=== PATIENT | female | born 1975 | race Caucasian/White ===

== ENCOUNTER 2017-08-13 16:49 | Emergency (ER) | payer BC, OTHER ==
[2017-08-13] MEDS ORDERED: IBUPROFEN 600 MG TABLET (FP) PO ONE (16:55)
[2017-08-13 16:56] VITALS: BP 137/95; PULSE 89; TEMP 97.5; BMI 23.6
--- NOTE | 2017-08-13 16:56 | PDOC ---
Rapid Medical Evaluation Time Seen by Provider: 08/13/17 16:51 Medical Evaluation: 08/13/17 16:51 The patient presents with a chief complaint of: Slammed R hand in car door. Pain to R 2nd and 3rd fingers. Also sustained cut to finger. I have performed a brief in-person evaluation of this patient; Pertinent physical exam findings: ambulatory, in no respiratory distress. Laceration 1cm to R dorsal second finger. Pain to palpation of R 2nd and 3rd fingers I have ordered the following: Motrin 600, R hand x-ray The patient will proceed to the ED for further evaluation. Discharge Disposition - Referrals Referrals: La Villalba MD [Primary Care Provider] - - Patient Instructions - Post Discharge Activity
[2017-08-13] MEDS ORDERED: DIPHTH,PERTUSS(ACELL),TET 0.5 ML DISP.SYRIN IM ONE (16:57)
--- NOTE | 2017-08-13 18:19 | PDOC ---
History of Present Illness - General Chief Complaint: Injury Stated Complaint: RIGHT HAND INJURY Time Seen by Provider: 08/13/17 16:51 History Source: Patient Exam Limitations: No Limitations - History of Present Illness Pain Location: reports: none, upper extremity Method of Injury: Yes: other (crushed in car door ) Modifying Factors: improves with: cold therapy Past History - Past Medical History Allergies/Adverse Reactions: Allergies Allergy/AdvReac Type Severity Reaction Status Date / Time No Known Allergies Allergy Verified 08/13/17 16:52 COPD: No Other medical history: macular degeneration - Suicide/Smoking/Psychosocial Hx Smoking History: Never smoked Information on smoking cessation initiated: No Hx Alcohol Use: No Drug/Substance Use Hx: No Substance Use Type: None *Physical Exam - Vital Signs Last Vital Signs Temp Pulse Resp BP Pulse Ox 97.5 F L 89 18 137/95 100 08/13/17 16:52 08/13/17 16:52 08/13/17 16:52 08/13/17 16:52 08/13/17 16:52 ED Treatment Course - Medications Given in the ED: ED Medications Discontinued Medications Generic Name Dose Route Start Last Admin Trade Name Kvngq PRN Reason Stop Dose Admin Ibuprofen 600 mg 08/13/17 16:55 08/13/17 16:57 Motrin - PO 08/13/17 16:56 600 mg ONCE ONE Administration *DC/Admit/Observation/Transfer - Referrals Referrals: La Villalba MD [Primary Care Provider] - - Patient Instructions - Post Discharge Activity
--- NOTE | 2017-08-13 19:04 | PDOC ---
History of Present Illness - General Chief Complaint: Injury Stated Complaint: RIGHT HAND INJURY Time Seen by Provider: 08/13/17 16:51 History Source: Patient Exam Limitations: No Limitations - History of Present Illness Initial Comments: 08/13/17 19:00 Patient was grabbing something from the trunk of her car when accidentally slammed her hand, incurred contusion and superficial abrasion to proximal phalanx of right index finger and pain to third digit also. Occurred: reports: just prior to arrival Severity: reports: mild, moderate Pain Location: reports: upper extremity (right hand with 2,3rd ) Method of Injury: Yes: direct blow Modifying Factors: improves with: None Loss of Consciousness: no loss of consciousness Associated Symptoms (Fall): denies symptoms Past History - Travel Traveled outside of the country in the last 30 days: No Close contact w/someone who was outside of country & ill: No - Past Medical History Allergies/Adverse Reactions: Allergies Allergy/AdvReac Type Severity Reaction Status Date / Time No Known Allergies Allergy Verified 08/13/17 16:52 Home Medications: Ambulatory Orders Oxycodone HCl/Acetaminophen [Percocet 5-325 mg Tablet -] 1 - 2 tab PO Q4H PRN # 10 tablet MDD 4 08/14/17 COPD: No Other medical history: macular degeneration - Suicide/Smoking/Psychosocial Hx Smoking History: Never smoked Information on smoking cessation initiated: No Hx Alcohol Use: No Drug/Substance Use Hx: No Substance Use Type: None Review of Systems - Review of Systems Able to Perform ROS?: Yes Is the patient limited Belgian proficient: Yes Constitutional: Yes: See HPI. No: Symptoms Reported, Malaise HEENTM: Yes: See HPI. No: Symptoms Reported Respiratory: No: Symptoms reported Musculoskeletal: Yes: Symptoms Reported, See HPI, Joint Pain, Joint Swelling Integumentary: Yes: Symptoms Reported, See HPI, Bruising Neurological: Yes: Symptoms reported, See HPI, Numbness (distal index and third digit) All Other Systems: Reviewed and Negative *Physical Exam - Vital Signs Last Vital Signs Temp Pulse Resp BP Pulse Ox 97.5 F L 89 18 137/95 100 08/13/17 16:52 08/13/17 16:52 08/13/17 16:52 08/13/17 16:52 08/13/17 16:52 - Physical Exam General Appearance: Yes: Nourished, Appropriately Dressed, Apparent Distress HEENT: positive: Normal ENT Inspection, TMs Normal, Pharynx Normal. negative: ANIBAL (horizontal nystagmus, patient with macular degeneration and legally blind) Neck: positive: Tender, Supple Respiratory/Chest: positive: Lungs Clear Extremity: positive: Swelling. negative: Normal Inspection, Normal Range of Motion Integumentary: positive: Normal Color, Pale, Swelling, Ecchymosis, Bruising ( with abrasion noted to the proximal phalanx of right index finger. Range of motion is limited secondary to exquisite pain however able to flex and extend index finger with better strength and movement of third fourth and fifth digits. ) Neurologic: positive: plate colorer II-XII NML intact, Alert, Normal Mood/Affect ED Treatment Course - Medications Given in the ED: ED Medications Discontinued Medications Generic Name Dose Route Start Last Admin Trade Name Freq PRN Reason Stop Dose Admin Ibuprofen 600 mg 08/13/17 16:55 08/13/17 16:57 Motrin - PO 08/13/17 16:56 600 mg ONCE ONE Administration Progress Note - Progress Note Progress Note: X-ray negative for fractures or dislocations, wound was cleaned and dressed with bacitracin ointment and Band-Aid and splint for mobilization. Patient encouraged to follow up with hand specialist this next week *DC/Admit/Observation/Transfer Diagnosis at time of Disposition: Contusion of hand including fingers Qualifiers: Encounter type: initial encounter Laterality: right Qualified Code(s): S60.221A - Contusion of right hand, initial encounter - Discharge Dispostion Disposition: HOME Condition at time of disposition: Stable Admit: No - Prescriptions Prescriptions: Oxycodone HCl/Acetaminophen [Percocet 5-325 mg Tablet -] 1 - 2 tab PO Q4H PRN # 10 tablet MDD 4 PRN Reason: Pain - Referrals Referrals: La Villalba MD [Primary Care Provider] - Wilbur Kahn MD [Staff Physician] - - Patient Instructions Printed Discharge Instructions: DI for Crush Injury Additional Instructions: Rest, ice to area on and off for 15 minutes 4-6 times a day Avoid heavy lifting or exercise until pain and swelling is resolved or until further directed Keep area highly elevated to reduce swelling Use splints/Pankaj wrap as directed Followup with orthopedist in one to 2 days if not improving, if significantly improved may wait one week for followup with orthopedist May use ibuprofen 2-200 mg tablets every 6 hours as needed for pain May take one half to 1 tablet of Percocet as needed for severe pain Your tetanus/diphtheria/pertussis booster updated today - Post Discharge Activity Forms/Work/School Notes: Back to Work
== END 2017-08-13 19:19 | disposition home or self-care (01) ==
LOC: JERFT 16:49
PROC: 3E0233Z Introduction of Anti-inflammatory into Muscle, Percutaneous Approach (ICD-10-PCS; principal; 2017-08-13)
DX: S60.221A Contusion of right hand, initial encounter (principal); S60.021A Contusion of right index finger without damage to nail, initial encounter; V88.8XXA Person injured in other specified noncollision transport accidents involving motor vehicle, nontraffic, initial encounter; Y92.488 Other paved roadways as the place of occurrence of the external cause; Y93.89 Activity, other specified; Y99.8 Other external cause status
CPT/HCPCS: 73130-TC-RT-FY; 90715; 99281-25

== ENCOUNTER 2018-03-08 22:52 | Emergency (ER) | payer BC ==
[2018-03-08 23:05] VITALS: BP 127/84; PULSE 92; TEMP 98.2; BMI 25.8
--- NOTE | 2018-03-08 23:21 | PDOC ---
History of Present Illness - General History Source: Patient, Law Enforcement, Other (VIDEOGAME TESTER.) Exam Limitations: No Limitations - History of Present Illness Initial Comments: 03/08/18 23:35 The patient is a 42 year old female, with a significant past medical history of macular degeneration, who presents to the emergency department with, vaginal cramping. As per patient, she had a surgical termination last week at 9 weeks along. She notes vaginal cramping today prompting her visit to [facility]. She was evaluated and found to have clots in her uterus. Patient is scheduled for a repeat suction tomorrow at 9am with Dr. Brandyn Rebolledo. Dr. Rebolledo notes he was not able to give narcotics from his office prompting her visit to the ER for pain management. Patient is a poor historian thus, history was obtained from OBGYN. She denies recent fevers, chills, headache or dizziness. She denies recent nausea, vomit, diarrhea or constipation. She denies recent dysuria, frequency, urgency or hematuria. She denies recent chest pain or shortness of breath. Allergies: NKDA Past surgical history: C-Sections x3. Primary Care Physician: Dr. La Moy <Taisha Mora - Last Filed: 03/08/18 23:35> <Fara Moscoso - Last Filed: 03/09/18 00:10> - General Chief Complaint: Vaginal Bleeding Stated Complaint: Miscarraige/retained products Time Seen by Provider: 03/08/18 23:08 Past History <Taisha Mora - Last Filed: 03/08/18 23:35> - Past Medical History COPD: No - Suicide/Smoking/Psychosocial Hx Smoking History: Never smoked Have you smoked in the past 12 months: No Information on smoking cessation initiated: No Hx Alcohol Use: No Drug/Substance Use Hx: No Substance Use Type: None <Fara Moscoso - Last Filed: 03/09/18 00:10> - Past Medical History Allergies/Adverse Reactions: Allergies Allergy/AdvReac Type Severity Reaction Status Date / Time No Known Allergies Allergy Verified 03/08/18 23:06 Home Medications: Ambulatory Orders Oxycodone HCl/Acetaminophen [Percocet 5-325 mg Tablet -] 1 - 2 tab PO Q4H PRN # 10 tablet MDD 4 08/14/17 Review of Systems - Review of Systems Able to Perform ROS?: Yes Comments:: 03/08/18 23:36 CONSTITUTIONAL: Absent: fever, no chills, no fatigue EYES: Absent: visual changes ENT: Absent: ear pain, no sore throat CARDIOVASCULAR: Absent: chest pain, no palpitations RESPIRATORY: Absent: cough, no SOB GI: Absent: abdominal pain, no nausea, no vomiting, no constipation, no diarrhea GENITOURINARY: Present: Vaginal cramping. Absent: dysuria, no frequency, no hematuria MUSKULOSKELETAL: Absent: back pain, no arthralgia, no myalgia SKIN: Absent: rash NEURO: Absent: headache All Other Systems: Reviewed and Negative <Taisha Mora - Last Filed: 03/08/18 23:35> *Physical Exam - Vital Signs Last Vital Signs Temp Pulse Resp BP Pulse Ox 98.2 F 92 H 16 127/84 100 03/08/18 23:01 03/08/18 23:01 03/08/18 23:01 03/08/18 23:01 03/08/18 23:01 - Physical Exam Comments: 03/08/18 23:36 GENERAL: Well developed, well nourished. Awake and alert. No acute distress. HEENT: Normocephalic, atraumatic. PERRLA, EOMI. No conjunctival pallor. Sclera are non- icteric. Moist mucous membranes. Oropharynx is clear. NECK: Supple. Full ROM. No JVD. Carotid pulses 2+ and symmetric, without bruits. No thyromegaly. No lymphadenopathy. CARDIOVASCULAR: Regular rate and rhythm. No murmurs, rubs, or gallops. Distal pulses are 2+ and symmetric. PULMONARY: No evidence of respiratory distress. Lungs clear to auscultation bilaterally. No wheezing, rales or rhonchi. ABDOMINAL: Soft. Non-tender. Non-distended. No rebound or guarding. No organomegaly. Normoactive bowel sounds. PELVIC: Patient deferred. MUSCULOSKELETAL Normal range of motion at all joints. No bony deformities or tenderness. No CVA tenderness. EXTREMITIES: No cyanosis. No clubbing. No edema. No calf tenderness. SKIN: Warm and dry. Normal capillary refill. No rashes. No jaundice. NEUROLOGICAL: Alert, awake, appropriate. Cranial nerves 2-12 intact. No deficits to light touch and temperature in face, upper extremities and lower extremities. No motor deficits in the in face, upper extremities and lower extremities. Normoreflexic in the upper and lower extremities. Normal speech. Toes are down- going bilaterally. Gait is normal without ataxia. PSYCHIATRIC: Cooperative. Good eye contact. Appropriate mood and affect. <Taisha Mora - Last Filed: 03/08/18 23:35> - Vital Signs Last Vital Signs Temp Pulse Resp BP Pulse Ox 98.2 F 92 H 16 127/84 100 03/08/18 23:01 03/08/18 23:01 03/08/18 23:01 03/08/18 23:01 03/08/18 23:01 <Fara Moscoso - Last Filed: 03/09/18 00:10> ED Treatment Course - LABORATORY CBC & Chemistry Diagram: 03/08/18 23:20 - ADDITIONAL ORDERS Additional order review: 03/08/18 23:20 RBC 4.52 MCV 93.3 MCHC 33.6 RDW 13.0 MPV 8.2 Neutrophils % 69.0 Lymphocytes % 21.1 Monocytes % 6.8 Eosinophils % 2.7 Basophils % 0.4 <Taisha Mora - Last Filed: 03/08/18 23:35> - LABORATORY CBC & Chemistry Diagram: 03/08/18 23:20 <Fara Moscoso - Last Filed: 03/09/18 00:10> Medical Decision Making - Medical Decision Making 03/09/18 00:06 This 42-year-old female had a termination last week and saw her INTEGRATION SOFTWARE DEVELOPER today because she has some vaginal bleeding. Ultrasound was done at the hospital in [place] by her INTEGRATION SOFTWARE DEVELOPER, Dr. Powers -he has her scheduled for an appt later today at 9am her hbg/hct are wnl [facility] IMP vag bleeding s/p therapeutic AB <Fara Moscoso - Last Filed: 03/09/18 00:10> *DC/Admit/Observation/Transfer - Attestations Scribe Attestion: 03/08/18 23:36 Documentation prepared by Taisha Mora, acting as medical planner for Fara Moscoso MD. <Risa Morapaigeconnie - Last Filed: 03/08/18 23:35> - Discharge Dispostion Decision to Admit order: No <Fara Moscoso - Last Filed: 03/09/18 00:10> Diagnosis at time of Disposition: Vagina bleeding - Discharge Dispostion Disposition: HOME Condition at time of disposition: Good - Referrals Referrals: La Villalba MD [Primary Care Provider] - - Patient Instructions Printed Discharge Instructions: DI for Vaginal Bleeding Additional Instructions: You are scheduled for procedure at your monotyper's office tomorrow at 9am - Post Discharge Activity
[2018-03-08 23:27] LABS: BASO % 0.4 % (0-2.0); EOS % 2.7 % (0-4.5); HEMATOCRIT 42.2 % (32.4-45.2); HEMOGLOBIN 14.2 GM/dL (10.7-15.3); LYMPH % 21.1 % (8-40); MCH 31.3 pg (25.7-33.7); MCHC 33.6 g/dl (32.0-36.0); MEAN CELL VOLUME 93.3 fl (80-96); MEAN PLT VOLUME 8.2 fl (7.5-11.1); MONO % 6.8 % (3.8-10.2); PLATELET COUNT 342 K/MM3 (134-434); RBC 4.52 M/mm3 (3.60-5.2); WHITE BLOOD COUNT 14.7 K/mm3 (4.0-10.0)
== END 2018-03-09 01:01 | disposition home or self-care (01) ==
LOC: JER 22:52
DX: O04.6 Delayed or excessive hemorrhage following (induced) termination of pregnancy (principal); N93.8 Other specified abnormal uterine and vaginal bleeding
CPT/HCPCS: 36415; 84702; 85025; 99282-25

== ENCOUNTER 2020-10-25 14:21 | Observation (INO) | payer BC, OTHER ==
[2020-10-25 16:24] LABS: BASO % 0.6 % (0-2.0); EOS % 3.1 % (0-4.5); HEMATOCRIT 40.4 % (32.4-45.2); LYMPH % 27.9 % (8-40); MCH 31.7 pg (25.7-33.7); MCHC 34.6 g/dl (32.0-36.0); MEAN CELL VOLUME 91.6 fl (80-96); MEAN PLT VOLUME 7.7 fl (7.5-11.1); MONO % 7.6 % (3.8-10.2); NEUT % 60.8 % (42.8-82.8); PLATELET COUNT 249 K/MM3 (134-434); RBC 4.41 M/mm3 (3.60-5.2); WHITE BLOOD COUNT 9.2 K/mm3 (4.0-10.0)
[2020-10-25 16:37] LABS: CHLORIDE 106 mmol/L (98-107); SODIUM 139 mmol/L (136-145)
[2020-10-25 16:40] LABS: ALBUMIN 3.8 g/dl (3.4-5.0); ANION GAP 6 MMOL/L (8-16); BLOOD UREA NITROGEN 9.7 mg/dL (7-18); CO2 27 mmol/L (21-32); GLUCOSE,RANDOM 89 mg/dL (74-106)
[2020-10-25 16:43] LABS: CREATININE 0.6 mg/dL (0.55-1.3); SGOT/AST 22 U/L (15-37); SGPT/ALT 16 U/L (13-61)
[2020-10-25 16:44] LABS: BILIRUBIN,TOTAL 0.6 mg/dL (0.2-1); TOT PROT 6.9 g/dl (6.4-8.2)
[2020-10-25 16:46] LABS: ALK PHOS 68 U/L (45-117)
[2020-10-25] MEDS ORDERED: ACETAMINOPHEN 1000 MG/100 ML VIAL (NON FORMULARY) IVPB ONE (18:23)
[2020-10-25] MEDS ORDERED: LACTATED RINGERS SOLUTION 1000 ML INFUS.BAG IV ONE (18:23)
[2020-10-25] MEDS ORDERED: ACETAMINOPHEN INJECTION 100 ML IVPB ONE (18:25)
[2020-10-25] MEDS ORDERED: LIDOCAINE 5% TOPICAL PATCH TP ONE (19:03)
[2020-10-25] MEDS ORDERED: LIDOCAINE 5% TOPICAL PATCH ONE (19:50)
[2020-10-25] MEDS ORDERED: KETOROLAC TROMETHAMINE 30 MG/1 ML VIAL IVPUSH ONE (20:02)
[2020-10-25] MEDS ORDERED: KETOROLAC TROMETHAMINE 30 MG/1 ML VIAL ONE (20:29)
[2020-10-25] MEDS ORDERED: CYCLOBENZAPRINE HCL 10 MG TABLET (FP) PO ONE (21:14)
[2020-10-25] MEDS ORDERED: CYCLOBENZAPRINE HCL 10 MG TABLET (FP) ONE (22:01)
[2020-10-25] MEDS: LIDOCAINE PATCH REMOVAL MC SCH (22:08)
[2020-10-26] MEDS ORDERED: KETOROLAC TROMETHAMINE 15 MG/ML VIAL IM PRN (00:10)
[2020-10-26] MEDS ORDERED: ACETAMINOPHEN 325 MG TABLET (FP) PO PRN (01:44)
[2020-10-26 03:25] VITALS: BMI 31.0
[2020-10-26] MEDS: KETOROLAC TROMETHAMINE 15 MG/ML VIAL IM PRN ×3 (05:25→21:15)
[2020-10-26 06:57] LABS: BASO % 0.6 % (0-2.0); EOS % 4.3 % (0-4.5); HEMATOCRIT 39.4 % (32.4-45.2); HEMOGLOBIN 13.2 GM/dL (10.7-15.3); LYMPH % 33.2 % (8-40); MCH 31.5 pg (25.7-33.7); MCHC 33.6 g/dl (32.0-36.0); MEAN CELL VOLUME 93.8 fl (80-96); MEAN PLT VOLUME 8.2 fl (7.5-11.1); MONO % 7.9 % (3.8-10.2); PLATELET COUNT 224 K/MM3 (134-434); RBC 4.21 M/mm3 (3.60-5.2); WHITE BLOOD COUNT 6.9 K/mm3 (4.0-10.0)
[2020-10-26 07:07] LABS: CALCIUM 8.1 mg/dL (8.5-10.1)
[2020-10-26 07:08] LABS: BLOOD UREA NITROGEN 11.4 mg/dL (7-18)
[2020-10-26 07:11] LABS: CREATININE 0.7 mg/dL (0.55-1.3)
[2020-10-26] MEDS ORDERED: ALPRAZolam 0.25 MG TABLET PO PRN (11:42)
[2020-10-26] MEDS: LIDOCAINE PATCH REMOVAL MC SCH (21:24)
[2020-10-26] MEDS ORDERED: PROCHLORPERAZINE INJECTION 10 MG/2 ML VIAL IVPB ONE (22:32)
[2020-10-26] MEDS: PANTOPRAZOLE 20 MG TABLET PO SCH (22:56)
[2020-10-27 08:59] VITALS: BP 138/80; PULSE 60; TEMP 98
[2020-10-27] MEDS: PANTOPRAZOLE 20 MG TABLET PO SCH (09:03)
[2020-10-27] MEDS ORDERED: SERTRALINE HCL 25 MG TABLET (FP) PO SCH (10:00)
[2020-10-27] MEDS: KETOROLAC TROMETHAMINE 15 MG/ML VIAL IM PRN (10:47)
== END 2020-10-27 13:25 | disposition home or self-care (01) ==
LOC: JER 14:21 → JERBED 21:15 → J4W 10-26 00:26
PROVIDERS: ADMIT Hospitalist; ATTEND Internal Medicine
PROC: 3E023NZ Introduction of Analgesics, Hypnotics, Sedatives into Muscle, Percutaneous Approach (ICD-10-PCS; principal; 2020-10-25)
PROC: 3E033NZ Introduction of Analgesics, Hypnotics, Sedatives into Peripheral Vein, Percutaneous Approach (ICD-10-PCS; 2020-10-25)
PROC: 3E033NZ Introduction of Analgesics, Hypnotics, Sedatives into Peripheral Vein, Percutaneous Approach (ICD-10-PCS; 2020-10-25)
PROC: 3E033GC Introduction of Other Therapeutic Substance into Peripheral Vein, Percutaneous Approach (ICD-10-PCS; 2020-10-25)
DX: F41.9 Anxiety disorder, unspecified (principal); R00.2 Palpitations; R07.9 Chest pain, unspecified; M94.0 Chondrocostal junction syndrome [Tietze]; I10 Essential (primary) hypertension; E66.9 Obesity, unspecified; Z68.31 Body mass index [BMI] 31.0-31.9, adult; M79.10 Myalgia, unspecified site; R53.81 Other malaise
CPT/HCPCS: 36415; 70450-TC; 71045-TC-FY; 80048; 80053; 84443; 84484; 84703; 85025; 85379; 85651; 86140; 93005; 93010; 99285-25; C9803; G0378; J0131; U0003; U0005

== ENCOUNTER 2022-07-17 15:33 | Inpatient (IN) | payer BC, OTHER ==
[2022-07-17 15:46] VITALS: BMI 26.6
[2022-07-17] MEDS ORDERED: SODIUM CHLORIDE 0.9% 500 ML INFUS.BAG IV ONE (16:51)
[2022-07-17] MEDS ORDERED: MECLIZINE HCL 12.5 MG TABLET PO ONE (16:51)
[2022-07-17] MEDS ORDERED: ONDANSETRON 4 MG/2 ML VIAL IVPUSH ONE (17:12)
[2022-07-17] MEDS ORDERED: MECLIZINE HCL 12.5 MG TABLET ONE (17:18)
[2022-07-17] MEDS ORDERED: ONDANSETRON 4 MG/2 ML VIAL ONE (17:19)
[2022-07-17 17:42] LABS: BASO % 0.1 % (0-2.0); EOS % 1.1 % (0-4.5); HEMATOCRIT 43.8 % (32.4-45.2); HEMOGLOBIN 14.7 GM/dL (10.7-15.3); MCH 30.8 pg (25.7-33.7); MCHC 33.5 g/dl (32.0-36.0); MEAN PLT VOLUME 7.5 fl (7.5-11.1); MONO % 2.3 % (3.8-10.2); NEUT % 89.5 % (42.8-82.8); PLATELET COUNT 236 10^3/uL (134-434); RBC 4.76 M/mm3 (3.60-5.2); RDW 14.1 % (11.6-15.6); WHITE BLOOD COUNT 9.4 K/mm3 (4.0-10.0)
[2022-07-17] MEDS ORDERED: KETOROLAC TROMETHAMINE 15 MG/ML VIAL IVPUSH ONE (17:42)
[2022-07-17] MEDS ORDERED: KETOROLAC TROMETHAMINE 15 MG/ML VIAL ONE (17:44)
[2022-07-17 17:49] LABS: INR 0.9 (0.83-1.09); PROTHROMBIN TIME (PATIENT) 10.5 SEC (9.7-13.0)
[2022-07-17 17:52] LABS: ACTIVATED PTT 31.5 SECONDS (25.2-36.5)
[2022-07-17 18:03] LABS: CALCIUM 8.8 mg/dL (8.5-10.1)
[2022-07-17 18:04] LABS: ALBUMIN 3.8 g/dl (3.4-5.0); BLOOD UREA NITROGEN 19.3 mg/dL (7-18); MAGNESIUM 2.1 mg/dL (1.8-2.4)
[2022-07-17 18:07] LABS: CREATININE 0.8 mg/dL (0.55-1.3)
[2022-07-17 18:08] LABS: BILIRUBIN,TOTAL 0.5 mg/dL (0.2-1); TOT PROT 6.8 g/dl (6.4-8.2)
[2022-07-17] MEDS ORDERED: METOCLOPRAMIDE HCL INJECTION 10 MG/2 ML VIAL IVPB ONE (19:45)
[2022-07-17] MEDS ORDERED: SODIUM CHLORIDE 500 ML IV STA (19:45)
[2022-07-17] MEDS ORDERED: METOCLOPRAMIDE HCL INJECTION 10 MG/2 ML VIAL ONE (19:56)
[2022-07-17] MEDS ORDERED: MIDAZOLAM HCL 2 MG/2 ML SINGLE DOSE VIAL IVPUSH ONE (20:29)
[2022-07-17] MEDS ORDERED: MIDAZOLAM HCL 2 MG/2 ML SINGLE DOSE VIAL ONE (20:41)
[2022-07-18] MEDS ORDERED: DEXTROSE 5%-NORMAL SALINE 1,000 ML IV SCH (00:15)
[2022-07-18] MEDS ORDERED: KETOROLAC TROMETHAMINE 30 MG/1 ML VIAL IVPUSH PRN (03:47)
[2022-07-18] MEDS ORDERED: AMOX TR/POT CLAV 875MG/125MG TABLETS (FP) PO SCH (08:00)
[2022-07-18] MEDS: ACETAMINOPHEN 1000 MG/100 ML BAG IVPB PRN ×2 (10:30→20:41)
[2022-07-18] MEDS: MULTIVITAMINS THER W-MINERALS COMBO TABLET (FP) PO SCH (10:31)
[2022-07-18] MEDS: METOCLOPRAMIDE HCL INJECTION 10 MG/2 ML VIAL IVPUSH PRN (10:32)
[2022-07-18] MEDS ORDERED: CEFTRIAXONE 1 GM in DEXTROSE 5%-WATER - 50 ML IVPB SCH (11:30)
[2022-07-18] MEDS ORDERED: valACYclovir HCL 1000 MG TABLET PO SCH (13:00)
[2022-07-18] MEDS ORDERED: valACYclovir HCL 500 MG TABLET (FP) PO SCH (13:32)
[2022-07-18] MEDS: GABAPENTIN 300 MG CAPSULE PO SCH ×3 (14:25→21:13)
[2022-07-18] MEDS ORDERED: CEFEPIME HCL 1 GM VIAL (RESTRICTED TO ID) ONE (19:53)
[2022-07-18] MEDS: CEFEPIME 1 GM in DEXTROSE 5%-WATER 100 ML IVPB SCH ×2 (19:59→23:50)
[2022-07-18] MEDS: valACYclovir HCL 500 MG TABLET (FP) PO SCH ×2 (20:48→21:11)
[2022-07-18] MEDS: VANCOMYCIN/WATER FOR INJ (PEG) 1,000 MG/200 ML BAG IVPB SCH (21:13)
[2022-07-18] MEDS: HEPARIN NA (PORCINE) 5,000 UNITS/ML 1ML VIAL SQ SCH (21:13)
[2022-07-19] MEDS: CEFEPIME 1 GM in DEXTROSE 5%-WATER 100 ML IVPB SCH ×3 (01:07→18:11)
[2022-07-19] MEDS: VANCOMYCIN/WATER FOR INJ (PEG) 1,000 MG/200 ML BAG IVPB SCH ×3 (02:46→20:58)
[2022-07-19] MEDS: valACYclovir HCL 500 MG TABLET (FP) PO SCH ×3 (05:21→22:27)
[2022-07-19] MEDS: GABAPENTIN 300 MG CAPSULE PO SCH ×4 (05:21→22:27)
[2022-07-19] MEDS: ACETAMINOPHEN 325 MG TABLET (FP) PO PRN (08:40)
[2022-07-19 09:49] LABS: BASO % 0.5 % (0-2.0); EOS % 7.6 % (0-4.5); HEMATOCRIT 38.2 % (32.4-45.2); HEMOGLOBIN 12.6 GM/dL (10.7-15.3); LYMPH % 27.6 % (8-40); MCH 30.5 pg (25.7-33.7); MCHC 33.1 g/dl (32.0-36.0); MEAN CELL VOLUME 92.2 fl (80-96); MEAN PLT VOLUME 7.8 fl (7.5-11.1); NEUT % 55.3 % (42.8-82.8); PLATELET COUNT 210 10^3/uL (134-434); RBC 4.15 M/mm3 (3.60-5.2); RDW 14.1 % (11.6-15.6); WHITE BLOOD COUNT 4.9 K/mm3 (4.0-10.0)
[2022-07-19 09:55] LABS: BLOOD UREA NITROGEN 14.5 mg/dL (7-18); CALCIUM 7.8 mg/dL (8.5-10.1)
[2022-07-19 09:59] LABS: CREATININE 0.6 mg/dL (0.55-1.3)
[2022-07-19] MEDS: MULTIVITAMINS THER W-MINERALS COMBO TABLET (FP) PO SCH (10:13)
[2022-07-19] MEDS: HEPARIN NA (PORCINE) 5,000 UNITS/ML 1ML VIAL SQ SCH ×2 (10:14→22:27)
[2022-07-19] MEDS: traMADol HCL 50 MG TABLET PO PRN ×3 (12:10→23:44)
[2022-07-19] MEDS: METOCLOPRAMIDE HCL INJECTION 10 MG/2 ML VIAL IVPUSH PRN (23:16)
[2022-07-20] MEDS: CEFEPIME 1 GM in DEXTROSE 5%-WATER 100 ML IVPB SCH ×3 (02:02→18:11)
[2022-07-20] MEDS: ACETAMINOPHEN 325 MG TABLET (FP) PO PRN (04:56)
[2022-07-20] MEDS: GABAPENTIN 300 MG CAPSULE PO SCH ×3 (05:00→21:09)
[2022-07-20] MEDS: valACYclovir HCL 500 MG TABLET (FP) PO SCH ×3 (05:00→21:08)
[2022-07-20 09:55] LABS: BASO % 0.7 % (0-2.0); EOS % 7.5 % (0-4.5); HEMATOCRIT 37.2 % (32.4-45.2); HEMOGLOBIN 12.5 GM/dL (10.7-15.3); LYMPH % 32.9 % (8-40); MCH 30.9 pg (25.7-33.7); MCHC 33.6 g/dl (32.0-36.0); MEAN CELL VOLUME 91.9 fl (80-96); MONO % 8.4 % (3.8-10.2); NEUT % 50.5 % (42.8-82.8); PLATELET COUNT 212 10^3/uL (134-434); RBC 4.05 M/mm3 (3.60-5.2); RDW 13.7 % (11.6-15.6); WHITE BLOOD COUNT 5.6 K/mm3 (4.0-10.0)
[2022-07-20 10:15] LABS: ALBUMIN 3.3 g/dl (3.4-5.0); BLOOD UREA NITROGEN 13.1 mg/dL (7-18); CALCIUM 8.3 mg/dL (8.5-10.1)
[2022-07-20] MEDS ORDERED: DOCUSATE SODIUM 100 MG CAPSULE (FP) PO PRN (10:16)
[2022-07-20 10:17] LABS: CREATININE 0.7 mg/dL (0.55-1.3)
[2022-07-20 10:19] LABS: BILIRUBIN,TOTAL 0.3 mg/dL (0.2-1); TOT PROT 6.1 g/dl (6.4-8.2)
[2022-07-20] MEDS: oxyCODONE HCL 5 MG TABLET PO PRN ×2 (10:22→18:12)
[2022-07-20] MEDS: HEPARIN NA (PORCINE) 5,000 UNITS/ML 1ML VIAL SQ SCH ×2 (12:38→21:08)
[2022-07-20] MEDS: MULTIVITAMINS THER W-MINERALS COMBO TABLET (FP) PO SCH (12:38)
[2022-07-20] MEDS: VANCOMYCIN/WATER FOR INJ (PEG) 1,000 MG/200 ML BAG IVPB SCH (13:14)
[2022-07-20] MEDS: ARTIFICIAL TEARS (POLYVINYL ALCOHOL) OPTH DROPS OU PRN (21:55)
[2022-07-20] MEDS: METOCLOPRAMIDE HCL INJECTION 10 MG/2 ML VIAL IVPUSH PRN (21:58)
[2022-07-21] MEDS: VANCOMYCIN/WATER FOR INJ (PEG) 1,000 MG/200 ML BAG IVPB SCH ×3 (00:44→16:03)
[2022-07-21] MEDS: oxyCODONE HCL 5 MG TABLET PO PRN ×5 (00:54→23:15)
[2022-07-21] MEDS: CEFEPIME 1 GM in DEXTROSE 5%-WATER 100 ML IVPB SCH ×3 (02:59→18:55)
[2022-07-21] MEDS: valACYclovir HCL 500 MG TABLET (FP) PO SCH ×3 (05:17→21:22)
[2022-07-21] MEDS: GABAPENTIN 300 MG CAPSULE PO SCH ×5 (05:17→21:39)
[2022-07-21] MEDS: HEPARIN NA (PORCINE) 5,000 UNITS/ML 1ML VIAL SQ SCH ×2 (09:20→21:22)
[2022-07-21] MEDS: MULTIVITAMINS THER W-MINERALS COMBO TABLET (FP) PO SCH (09:23)
[2022-07-21] MEDS: ARTIFICIAL TEARS (POLYVINYL ALCOHOL) OPTH DROPS OU PRN ×3 (09:23→19:03)
[2022-07-21] MEDS: METOCLOPRAMIDE HCL INJECTION 10 MG/2 ML VIAL IVPUSH PRN (13:39)
[2022-07-22] MEDS: VANCOMYCIN/WATER FOR INJ (PEG) 1,000 MG/200 ML BAG IVPB SCH ×2 (00:39→11:48)
[2022-07-22] MEDS: ACETAMINOPHEN 325 MG TABLET (FP) PO PRN ×3 (01:54→18:50)
[2022-07-22] MEDS: CEFEPIME 1 GM in DEXTROSE 5%-WATER 100 ML IVPB SCH ×3 (01:55→18:48)
[2022-07-22] MEDS: valACYclovir HCL 500 MG TABLET (FP) PO SCH ×3 (05:20→21:54)
[2022-07-22] MEDS: GABAPENTIN 300 MG CAPSULE PO SCH (05:38)
[2022-07-22] MEDS: oxyCODONE HCL 5 MG TABLET PO PRN ×2 (08:36→15:38)
[2022-07-22] MEDS: HEPARIN NA (PORCINE) 5,000 UNITS/ML 1ML VIAL SQ SCH ×2 (10:27→21:54)
[2022-07-22] MEDS: MULTIVITAMINS THER W-MINERALS COMBO TABLET (FP) PO SCH (10:27)
[2022-07-22] MEDS: ARTIFICIAL TEARS (POLYVINYL ALCOHOL) OPTH DROPS OU PRN ×2 (10:32→15:48)
[2022-07-22] MEDS ORDERED: FLUCONAZOLE 150 MG TABLET PO ONE (11:47)
[2022-07-22] MEDS: GABAPENTIN 400 MG CAPSULE PO SCH ×3 (13:02→21:54)
[2022-07-22] MEDS: METOCLOPRAMIDE HCL INJECTION 10 MG/2 ML VIAL IVPUSH PRN (18:48)
[2022-07-22] MEDS: diphenhydrAMINE HCL 25 MG CAPSULE (FP) PO PRN (18:49)
[2022-07-23] MEDS: VANCOMYCIN/WATER FOR INJ (PEG) 1,000 MG/200 ML BAG IVPB SCH ×2 (00:07→11:52)
[2022-07-23] MEDS: CEFEPIME 1 GM in DEXTROSE 5%-WATER 100 ML IVPB SCH ×2 (01:30→10:13)
[2022-07-23] MEDS: ACETAMINOPHEN 325 MG TABLET (FP) PO PRN ×2 (04:01→16:33)
[2022-07-23] MEDS: diphenhydrAMINE HCL 25 MG CAPSULE (FP) PO PRN ×2 (04:02→10:22)
[2022-07-23] MEDS: GABAPENTIN 400 MG CAPSULE PO SCH ×2 (05:35→13:07)
[2022-07-23] MEDS: valACYclovir HCL 500 MG TABLET (FP) PO SCH ×2 (05:35→13:07)
[2022-07-23] MEDS: oxyCODONE HCL 5 MG TABLET PO PRN ×2 (08:51→13:05)
[2022-07-23 08:57] LABS: BLOOD UREA NITROGEN 20.4 mg/dL (7-18); CALCIUM 8.6 mg/dL (8.5-10.1)
[2022-07-23 09:01] LABS: CREATININE 0.7 mg/dL (0.55-1.3)
[2022-07-23] MEDS: MULTIVITAMINS THER W-MINERALS COMBO TABLET (FP) PO SCH (09:57)
[2022-07-23] MEDS: HEPARIN NA (PORCINE) 5,000 UNITS/ML 1ML VIAL SQ SCH (10:04)
[2022-07-23] MEDS: ARTIFICIAL TEARS (POLYVINYL ALCOHOL) OPTH DROPS OU PRN (10:13)
[2022-07-23] MEDS ORDERED: CYANOCOBALAMIN (VITAMIN B-12) 1000 MCG/1 ML VIAL IM ONE (14:36)
[2022-07-23 14:47] VITALS: PULSE 76
[2022-07-23 14:57] VITALS: BP 130/80; RESP 18; TEMP 97.7
== END 2022-07-23 17:27 | disposition home or self-care (01) | DRG 156 ==
LOC: JER 15:33 → JERBED 21:59 → J5S 07-18 03:39 → OBSVTOIN 07-20 11:13
PROVIDERS: ADMIT Internal Medicine; ATTEND Internal Medicine
DX: H60.11 Cellulitis of right external ear (principal); R42 Dizziness and giddiness; J32.9 Chronic sinusitis, unspecified; H92.01 Otalgia, right ear; H54.8 Legal blindness, as defined in USA; H35.30 Unspecified macular degeneration
CPT/HCPCS: 0241U-QW; 36415; 70450-TC; 70486-TC; 70496-TC; 70498-TC; 70551-TC; 80048; 80053; 83735; 84484; 84703; 85025; 85610; 85730; 86787; 87070; 87186; 87205; 93005; 93010; 99285-25; G0378; G0480; J1644; Q9967

== ENCOUNTER 2024-09-08 22:01 | Emergency (ER) | payer OTHER, BC ==
[2024-09-08 22:11] VITALS: TEMP 98; BMI 28.0
[2024-09-08] MEDS ORDERED: KETOROLAC TROMETHAMINE 15 MG/ML VIAL ONE ×2 (23:34→23:39)
[2024-09-08] MEDS ORDERED: METOCLOPRAMIDE HCL INJECTION 10 MG/2 ML VIAL ONE (23:34)
[2024-09-08] MEDS: KETOROLAC TROMETHAMINE 30 MG/1 ML VIAL IVPUSH ONE (23:52)
[2024-09-08] MEDS: METOCLOPRAMIDE HCL INJECTION 10 MG/2 ML VIAL IVPUSH ONE (23:52)
[2024-09-08] MEDS: SODIUM CHLORIDE 1,000 ML IV STA (23:52)
[2024-09-08 23:53] LABS: HEMATOCRIT 39.7 % (34.1-44.9); HEMOGLOBIN 13.1 g/dL (11.2-15.7); MEAN CELL VOLUME 93.6 fl (79.4-94.8); MEAN PLT VOLUME 9.1 fl (9.4-12.3); PLATELET COUNT 276 x10^3/uL (182-369); RDW 13.2 % (12.2-17.1)
[2024-09-09 00:16] LABS: POTASSIUM 3.8 mmol/L (3.5-5.1)
[2024-09-09 00:18] LABS: CALCIUM 9.2 mg/dL (8.5-10.1)
[2024-09-09 00:19] LABS: ALBUMIN 3.6 g/dl (3.4-5.0); BLOOD UREA NITROGEN 21.4 mg/dL (7-18); MAGNESIUM 2.4 mg/dL (1.8-2.4)
[2024-09-09 00:22] LABS: CREATININE 0.9 mg/dL (0.55-1.3)
[2024-09-09 00:23] LABS: BILIRUBIN,TOTAL 0.2 mg/dL (0.2-1)
[2024-09-09 00:24] LABS: TOT PROT 6.6 g/dl (6.4-8.2)
[2024-09-09 00:40] LABS: ERYTHROCYTE SEDIMENTATION RATE 9 mm/hr (0-30)
[2024-09-09] MEDS ORDERED: CycloBENZAprine HCL 10 MG TABLET (FP) ONE (02:05)
[2024-09-09] MEDS ORDERED: ACETAMINOPHEN 500 MG TABLET (FP) ONE (02:06)
[2024-09-09] MEDS: CycloBENZAprine HCL 10 MG TABLET (FP) PO ONE (02:15)
[2024-09-09] MEDS: ACETAMINOPHEN 500 MG TABLET (FP) PO ONE (02:15)
[2024-09-09 02:16] VITALS: BP 126/78; PULSE 80; RESP 17
== END 2024-09-09 02:17 | disposition home or self-care (01) ==
LOC: JER 22:01
PROC: 3E0333Z Introduction of Anti-inflammatory into Peripheral Vein, Percutaneous Approach (ICD-10-PCS; principal; 2024-09-08)
PROC: 3E033GC Introduction of Other Therapeutic Substance into Peripheral Vein, Percutaneous Approach (ICD-10-PCS; 2024-09-08)
PROC: 3E0337Z Introduction of Electrolytic and Water Balance Substance into Peripheral Vein, Percutaneous Approach (ICD-10-PCS; 2024-09-08)
DX: G43.909 Migraine, unspecified, not intractable, without status migrainosus (principal); R11.0 Nausea
CPT/HCPCS: 36415; 70450-TC; 70486-TC; 80053; 83735; 85027; 85651; 99285-25